=== PATIENT | female | born 1955 | race Caucasian/White ===

== ENCOUNTER → 2017-03-12 | Day surgery (SDC) | payer OTHER ==
[~2017-03-12] MED LIST: Lactated Ringers 1,000 ML IV SCH; Propofol 200 MG/20 ML SDV IV ONE
[2017-03-12 10:49] VITALS: BP 132/77
--- NOTE | 2017-03-12 15:10 | OR ---
DATE OF OPERATION: 03/12/2017 PREOPERATIVE DIAGNOSIS: FAMILY HISTORY OF COLON CANCER. POSTOPERATIVE DIAGNOSIS: FAMILY HISTORY OF COLON CANCER. SURGEON: Scot Perea MD PROCEDURE: FULL-LENGTH COLONOSCOPY. 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 COMPLICATIONS: None. SPECIMEN: None. FINDINGS: Normal full-length colonoscopy. RECOMMENDATIONS: Followup colonoscopy every 5 years. INDICATIONS: The patient has a family history of colon cancer in her mother. She overdue for a routine colonoscopy. DESCRIPTION OF PROCEDURE: The patient was prepped and draped, placed in a left lateral decubitus position. A lubricated Olympus colonoscope was inserted and easily advanced to the cecum. Direct visualization of the ileocecal valve and appendiceal orifice was accomplished. The bowel prep was adequate. Upon withdrawal of the scope, throughout the entire length of the colon, I found no signs of any polyps, masses, ulcerations, or bleeding sites. No vascular abnormalities or signs of colitis. There were no diverticula. No worrisome lesions found throughout. The rectal vault was unremarkable. Retroflexion of scope in the rectum showed no anal lesions. Air was suctioned. Scope was removed without complication. KAYLIE/JULIANNA /[id number]
== END ==
LOC: CC.SDS 08:26
PROVIDERS: ATTEND Family Medicine
DX: Z12.11 Encounter for screening for malignant neoplasm of colon (principal); F41.9 Anxiety disorder, unspecified; F32.9 Major depressive disorder, single episode, unspecified; I10 Essential (primary) hypertension; Z80.0 Family history of malignant neoplasm of digestive organs; Z91.09 Other allergy status, other than to drugs and biological substances; K21.9 Gastro-esophageal reflux disease without esophagitis; E03.9 Hypothyroidism, unspecified; Z88.1 Allergy status to other antibiotic agents; Z88.2 Allergy status to sulfonamides; Z88.8 Allergy status to other drugs, medicaments and biological substances; Z79.899 Other long term (current) drug therapy; Z90.710 Acquired absence of both cervix and uterus; Z98.890 Other specified postprocedural states; Z98.51 Tubal ligation status; Z72.0 Tobacco use
CPT/HCPCS: 45378; J2704; J7120

== ENCOUNTER 2018-06-05 07:50 | Emergency (ER) | payer BC ==
[2018-06-05] MEDS ORDERED: Nitrofurantoin Monohydrate/Macrocrystalline 100 MG Cap PO ONE ×2 (07:51→08:33)
[2018-06-05] MEDS ORDERED: Phenazopyridine 95 MG Tab PO ONE ×2 (07:51→08:30)
[2018-06-05 08:03] VITALS: BP 144/78
[2018-06-05] MEDS ORDERED: Take Home: Phenazopyridine 95 MG Tab, 4 Tab Pack ONE (08:20)
[2018-06-05] MEDS ORDERED: Take Home: Nitrofurantoin Monohydrate/Macrocrystalline 100 MG, 2 Cap Pack PO ONE (08:20)
[2018-06-05] MEDS ORDERED: Nitrofurantoin Monohydrate/Macrocrystalline 100 MG Cap ONE (08:22)
--- NOTE | 2018-06-05 08:22 | EDM.PDOC ---
ED HPI GENERAL MEDICAL PROBLEM - General Chief Complaint: Genitourinary Problem Stated Complaint: UTI? 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) (cranberry juice) Bladder Pain Score (Numeric/FACES): 5 - Related Data Allergies Allergy/AdvReac Type Severity Reaction Status Date / Time cefaclor [From Ceclor] Allergy Hives Verified 06/05/18 07:53 cefuroxime [From Ceftin] Allergy Diarrhea Verified 06/05/18 07:53 cephalexin monohydrate Allergy Chest Pain Verified 06/05/18 07:53 [From Keflex] doxycycline Allergy Nausea Verified 06/05/18 07:53 hydrocodone Allergy Nausea and Verified 06/05/18 07:53 Vomiting levofloxacin [From Levaquin] Allergy Leg Cramps Verified 06/05/18 07:53 moxifloxacin HCl Allergy Vomiting Verified 06/05/18 07:53 [From Avelox] oxycodone HCl Allergy Nausea and Verified 06/05/18 07:53 [From OxyContin] Vomiting Penicillins Allergy Hives Verified 06/05/18 07:53 Sulfa (Sulfonamide Allergy Fluid Verified 06/05/18 07:53 Antibiotics) Retention Home Meds: Home Meds Bumetanide [Bumex] 1 mg PO DAILY 09/10/13 [History] Calcium Carbonate/Vitamin D3 [Calcium 500 + Vit D Caplet] 1 each PO DAILY [History] Levothyroxine Sodium 25 mcg PO DAILY 09/10/13 [History] Pantoprazole Sodium 40 mg PO DAILY 09/10/13 [History] Potassium Chloride 10 meq PO DAILY 09/10/13 [History] Venlafaxine HCl [Venlafaxine ER] 75 mg PO DAILY 09/10/13 [History] Cetirizine HCl/Pseudoephedrine [ZyrTEC-D] 5 mg PO DAILY 02/14/15 [History] Ibuprofen 3 tab PO Q4H PRN 03/11/17 [History] traMADol HCl [Tramadol HCl] 50 mg PO BID PRN 03/11/17 [History] Past Medical History Musculoskeletal History: Reports: Arthritis Endocrine/Metabolic History: Reports: Hypoparathyroidism Social & Family History - Family History Cardiac: Reports: Hypertension - Tobacco Use Smoking Status *Q: Never Smoker - Alcohol Use Alcohol Use History: Yes Alcohol Use Frequency: Rarely - Recreational Drug Use Recreational Drug Use: No - Living Situation & Occupation Living situation: Reports: , with Family ED ROS GENERAL - Review of Systems Review Of Systems: See Below Constitutional: Reports: Chills. Denies: Fever HEENT: Reports: No Symptoms Respiratory: Reports: No Symptoms. Denies: Shortness of Breath, Cough Cardiovascular: Reports: No Symptoms. Denies: Chest Pain Endocrine: Reports: No Symptoms GI/Abdominal: Reports: Abdominal Pain (suprapubic pain) : Reports: Frequency, Pain Musculoskeletal: Reports: No Symptoms Skin: Reports: No Symptoms Neurological: Reports: No Symptoms Psychiatric: Reports: No Symptoms ED EXAM, GENERAL - Physical Exam Exam: See Below Exam Limited By: No Limitations General Appearance: Alert, WD/WN, No Apparent Distress Head: Atraumatic, Normocephalic Neck: Normal Inspection, Supple, Non-Tender, Full Range of Motion Respiratory/Chest: No Respiratory Distress, Lungs Clear, Normal Breath Sounds Cardiovascular: Normal Peripheral Pulses, Regular Rate, Rhythm, No Edema, No Murmur GI/Abdominal: Normal Bowel Sounds, Soft, No Distention, Tender (suprapubic tenderness with palpation ) Back Exam: Normal Inspection, Full Range of Motion. No: CVA Tenderness (L), CVA Tenderness (R) Extremities: Normal Inspection, Normal Range of Motion, Non-Tender, No Pedal Edema, Normal Capillary Refill Neurological: Alert, Oriented, Normal Cognition, Normal Gait, No Motor/Sensory Deficits Psychiatric: Normal Affect, Normal Mood Skin Exam: Warm, Dry, Intact, Normal Color, No Rash Course - Vital Signs Last Recorded V/S: Last Vital Signs Temp 36.7 C 06/05/18 08:00 Pulse 91 06/05/18 08:00 Resp 14 06/05/18 08:00 BP 144/78 H 06/05/18 08:00 Pulse Ox 97 06/05/18 08:00 - Orders/Labs/Meds Orders: Active Orders 24 hr Category Date Time Status CULTURE URINE [RM] Stat Lab 06/05/18 08:04 Received Nitrofurantoin Potter/Macrocryst [Macrobid] Med 06/05/18 17:30 Ordered 100 mg PO BIDMEALS Medication Orders Nitrofurantoin Macrocrystals (Macrobid) 100 mg PO BIDMEALS [facility] Labs: Laboratory Tests 06/05/18 Range/Units 08:04 Urine Color Yellow (YELLOW) Urine Appearance Cloudy (CLEAR) Urine pH 5.5 (4.5-8.0) Ur Specific [place] <= 1.005 (1.003-1.020) Urine Protein 30 H (NEGATIVE) mg/dL Urine Glucose (UA) Negative (NEGATIVE) mg/dL Urine Ketones Negative (NEGATIVE) mg/dL Urine Occult Blood Large H (NEGATIVE) Urine Nitrite Negative (NEGATIVE) Urine Bilirubin Negative (NEGATIVE) Urine Urobilinogen 0.2 (0.2-1.0) EU/dL Ur Leukocyte Esterase Moderate H (NEGATIVE) Urine RBC 20-30 H (0-5) /HPF Urine WBC 50-75 H (0-5) /HPF Ur Squamous Epith Cells Few H (NOT SEEN) /HPF Urine Bacteria Many H (NOT SEEN) /HPF Urinalysis Comment Meds: Medications Generic Name Dose Route Start Last Admin Trade Name Freq PRN Reason Stop Dose Admin Nitrofurantoin Macrocrystals 100 mg 06/05/18 17:30 Macrobid PO BIDMEALS [facility] Discontinued Medications Generic Name Dose Route Start Last Admin Trade Name Freq PRN Reason Stop Dose Admin Nitrofurantoin Macrocrystals 2 packet 06/05/18 08:20 Take Home: Nitrofur Potter/Ma 100 Mg, 2 Pack PO 06/05/18 08:21 ONETIME ONE Phenazopyridine HCl 95 mg 06/05/18 08:30 06/05/18 08:30 Urinary Pain Relief PO 06/05/18 08:31 95 mg ONETIME ONE Administration Phenazopyridine HCl 1 packet 06/05/18 08:20 Take Home: Phenazopyridine, 4 Tab Pack .XX 06/05/18 08:21 ONETIME ONE Departure - Departure Time of Disposition: 08:33 Disposition: Home, Self-Care 01 Condition: Good Clinical Impression: UTI, Urinary tract infectious disease, Hemorrhagic cystitis - Discharge Information *PRESCRIPTION DRUG MONITORING PROGRAM REVIEWED*: Not Applicable *COPY OF PRESCRIPTION DRUG MONITORING REPORT IN PATIENT ANTONIA: Not Applicable Instructions: Urinary Tract Infection, Adult, [id number] Forms: ED Department Discharge Additional Instructions: increase fluids pyridium 100mg take 1 tablet 3 x a day for 2 days nitrofurantoin 100mg 2 x a day for 10 days follow up with Rena Thompson in 7-10 days to recheck your urine return to te ED as needed - Problem List & Annotations (1) Hemorrhagic cystitis SNOMED Code(s): 73749557 Code(s): N30.91 - CYSTITIS, UNSPECIFIED WITH HEMATURIA Status: Acute Priority: Medium Current Visit: No Onset Date: ~06/02/18 - My Orders Last 24 Hours: My Active Orders 06/05/18 08:04 CULTURE URINE [RM] Stat 06/05/18 17:30 Nitrofurantoin Potter/Macrocryst [Macrobid] 100 mg PO BIDMEALS - Assessment/Plan Last 24 Hours: My Active Orders 06/05/18 08:04 CULTURE URINE [RM] Stat 06/05/18 17:30 Nitrofurantoin Potter/Macrocryst [Macrobid] 100 mg PO BIDMEALS Plan: will dc with pyridium and nitrofurantoin and will have the pt f/u with Rena Thompson in 7-10 days
[2018-06-05] MEDS ORDERED: Nitrofurantoin Monohydrate/Macrocrystalline 100 MG Cap PO SCH (17:30)
== END 2018-06-05 08:45 | disposition home or self-care (01) ==
LOC: CC.ED 07:50
DX: N30.91 Cystitis, unspecified with hematuria (principal); E20.9 Hypoparathyroidism, unspecified; Z79.899 Other long term (current) drug therapy; Z88.0 Allergy status to penicillin; Z88.2 Allergy status to sulfonamides; Z88.8 Allergy status to other drugs, medicaments and biological substances; Z88.5 Allergy status to narcotic agent
CPT/HCPCS: 81001; 87086; 87088; 99283; A9270; 87186

== ENCOUNTER 2018-12-12 13:18 | Observation (INO) | payer BC ==
[2018-12-12] MEDS ORDERED: Sodium Chloride 0.9% 10 ML Syringe FLUSH PRN (14:50)
[2018-12-12] MEDS ORDERED: Metoprolol Tartrate 25 MG Tab PO SCH (15:00)
[2018-12-12] MEDS: Enoxaparin 30 MG/0.3 ML Syringe SUBCUT SCH (16:26)
[2018-12-12] MEDS: Aspirin 325 MG Tab.EC PO SCH (16:27)
[2018-12-12] MEDS: Nitrofurantoin Monohydrate/Macrocrystalline 100 MG Cap PO SCH (16:29)
[2018-12-12] MEDS: PANTOPRAZOLE 40 MG IVPUSH SCH (16:30)
[2018-12-12] MEDS: Acetaminophen 325 MG Tab PO PRN (17:44)
[2018-12-12] MEDS ORDERED: Potassium Chloride 10 MEQ Tab.ER PO ONE (20:00)
[2018-12-12] MEDS: Metoprolol Tartrate 25 MG Tab PO SCH ×2 (20:06→22:39)
[2018-12-12] MEDS ORDERED: traMADol 50 MG Tab PO PRN (20:43)
[2018-12-13] MEDS: PANTOPRAZOLE 40 MG IVPUSH SCH (07:55)
[2018-12-13] MEDS: Aspirin 325 MG Tab.EC PO SCH (08:04)
[2018-12-13] MEDS: Acetaminophen 325 MG Tab PO PRN ×3 (08:04→19:30)
[2018-12-13] MEDS: Nitrofurantoin Monohydrate/Macrocrystalline 100 MG Cap PO SCH (08:05)
[2018-12-13] MEDS: Metoprolol Tartrate 25 MG Tab PO SCH ×2 (08:05→19:30)
[2018-12-13] MEDS: **PTOM** Potassium Chloride 10 MEQ Tab.ER PO SCH (08:39)
[2018-12-13] MEDS: VENLAFAXINE 75 MG PO SCH (08:39)
[2018-12-13] MEDS: BUMETANIDE 1 MG PO SCH (08:39)
[2018-12-13] MEDS: Levothyroxine 50 MCG Tab PO SCH ×2 (08:40→08:42)
[2018-12-13] MEDS: LEVOTHYROXINE 25 MCG PO SCH (08:41)
--- NOTE | 2018-12-13 11:32 | PCM.PN ---
- General Info Date of Service: 12/13/18 Admission Dx/Problem (Free Text): Chest Pain UTI Functional Status: Reports: Pain Controlled (states had episode last evening of increased pain but is now pain free), Tolerating Diet, Ambulating - Review of Systems General: Reports: Fever, Malaise. Denies: Weakness, Fatigue HEENT: Reports: Sinus Congestion. Denies: Sore Throat Pulmonary: Reports: Cough. Denies: Shortness of Breath, Sputum Cardiovascular: Denies: Chest Pain, Edema, Lightheadedness Gastrointestinal: Denies: Abdominal Pain, Nausea, Vomiting Genitourinary: Reports: No Symptoms Musculoskeletal: Reports: No Symptoms Skin: Reports: No Symptoms Neurological: Reports: No Symptoms Psychiatric: Reports: No Symptoms - Patient Data Vitals - Most Recent: Last Vital Signs Temp 100.1 F 12/13/18 10:30 Pulse 103 H 12/13/18 08:05 Resp 16 12/13/18 08:00 BP 148/71 H 12/13/18 08:05 Pulse Ox 97 12/13/18 08:00 Weight - Most Recent: 195 lb 12.8 oz Lab Results Last 24 Hours: Laboratory Results - last 24 hr 12/12/18 12/12/18 12/12/18 Range/Units 13:31 13:31 13:31 WBC 9.3 (5.0-10.0) 10^3/uL RBC 4.24 (4.00-5.50) 10^6/uL Hgb 12.7 (12.0-16.0) g/dL Hct 38.0 (37.0-47.0) % MCV 89.6 (82.0-94.0) fL MCH 30.0 (27.0-32.0) pg MCHC 33.4 (33.0-38.0) g/dL RDW Coeff of Ember 13.9 (11.0-15.0) % Plt Count 284 (150-400) 10^3/uL Neut % (Auto) 73.8 (35-85) % Lymph % (Auto) 15.4 (10-55) % [place] % (Auto) 8.0 (0-16) % Eos % (Auto) 2.5 (0-5) % Baso % (Auto) 0.3 (0-3) % Neut # (Auto) 6.88 (1.80-7.00) 10^3/uL Lymph # (Auto) 1.44 (1.00-4.80) 10^3/uL [place] # (Auto) 0.75 (0.00-0.80) 10^3/uL Eos # (Auto) 0.23 (0.00-0.45) 10^3/uL Baso # (Auto) 0.03 10^3/uL Add Manual Diff Neutrophils % (Manual) (35-85) % Band Neutrophils % (0-5) % Lymphocytes % (Manual) (21-55) % Monocytes % (Manual) (2-12) % Eosinophils % (Manual) (0-5) % D-Dimer, Quantitative 0.58 H (0.00-0.50) POC Sodium (138-146) mmol/L Sodium 138 POC Potassium (3.5-4.9) mmol/L Potassium 3.9 POC Chloride (98-109) mmol/L Chloride 100 Carbon Dioxide 26 POC Total CO2 (21-32) mmol/L POC BUN (8-26) mg/dL BUN 8 Creatinine 1.02 POC Creatinine (0.6-1.3) mg/dL Glucose 146 POC Glucose (70-99) mg/dL Calcium 9.1 POC WB Ioniz Calcium (1.12-1.32) Total Bilirubin 0.9 AST 12 ALT 12 Alkaline Phosphatase 97 Total Protein 7.1 Albumin 4.1 Amylase (29-103) U/L Urine Color (YELLOW) Urine Appearance (CLEAR) Urine pH (4.5-8.0) Ur Specific [place] (1.003-1.020) Urine Protein (NEGATIVE) mg/dL Urine Glucose (UA) (NEGATIVE) mg/dL Urine Ketones (NEGATIVE) mg/dL Urine Occult Blood (NEGATIVE) Urine Nitrite (NEGATIVE) Urine Bilirubin (NEGATIVE) Urine Urobilinogen (0.2-1.0) EU/dL Ur Leukocyte Esterase (NEGATIVE) Miscellaneous Test 12/12/18 12/12/18 12/12/18 Range/Units 13:31 13:31 14:08 WBC (5.0-10.0) 10^3/uL RBC (4.00-5.50) 10^6/uL Hgb (12.0-16.0) g/dL Hct (37.0-47.0) % MCV (82.0-94.0) fL MCH (27.0-32.0) pg MCHC (33.0-38.0) g/dL RDW Coeff of Ember (11.0-15.0) % Plt Count (150-400) 10^3/uL Neut % (Auto) (35-85) % Lymph % (Auto) (10-55) % [place] % (Auto) (0-16) % Eos % (Auto) (0-5) % Baso % (Auto) (0-3) % Neut # (Auto) (1.80-7.00) 10^3/uL Lymph # (Auto) (1.00-4.80) 10^3/uL [place] # (Auto) (0.00-0.80) 10^3/uL Eos # (Auto) (0.00-0.45) 10^3/uL Baso # (Auto) 10^3/uL Add Manual Diff Neutrophils % (Manual) (35-85) % Band Neutrophils % (0-5) % Lymphocytes % (Manual) (21-55) % Monocytes % (Manual) (2-12) % Eosinophils % (Manual) (0-5) % D-Dimer, Quantitative (0.00-0.50) POC Sodium (138-146) mmol/L Sodium POC Potassium (3.5-4.9) mmol/L Potassium POC Chloride (98-109) mmol/L Chloride Carbon Dioxide POC Total CO2 (21-32) mmol/L POC BUN (8-26) mg/dL BUN Creatinine POC Creatinine (0.6-1.3) mg/dL Glucose POC Glucose (70-99) mg/dL Calcium POC WB Ioniz Calcium (1.12-1.32) Total Bilirubin AST ALT Alkaline Phosphatase Total Protein Albumin Amylase 43 (29-103) U/L Urine Color Yellow (YELLOW) Urine Appearance Clear (CLEAR) Urine pH 7.0 (4.5-8.0) Ur Specific [place] 1.010 (1.003-1.020) Urine Protein Negative (NEGATIVE) mg/dL Urine Glucose (UA) Negative (NEGATIVE) mg/dL Urine Ketones Negative (NEGATIVE) mg/dL Urine Occult Blood Small H (NEGATIVE) Urine Nitrite Negative (NEGATIVE) Urine Bilirubin Negative (NEGATIVE) Urine Urobilinogen 0.2 (0.2-1.0) EU/dL Ur Leukocyte Esterase Large H (NEGATIVE) Miscellaneous Test <0.03 12/12/18 12/13/18 Range/Units 15:55 07:00 WBC 11.7 H (5.0-10.0) 10^3/uL RBC 4.23 (4.00-5.50) 10^6/uL Hgb 12.7 (12.0-16.0) g/dL Hct 38.3 (37.0-47.0) % MCV 90.5 (82.0-94.0) fL MCH 30.0 (27.0-32.0) pg MCHC 33.2 (33.0-38.0) g/dL RDW Coeff of Ember 13.8 (11.0-15.0) % Plt Count 275 (150-400) 10^3/uL Neut % (Auto) [employer] (35-85) % Lymph % (Auto) [employer] (10-55) % [place] % (Auto) [employer] (0-16) % Eos % (Auto) [employer] (0-5) % Baso % (Auto) [employer] (0-3) % Neut # (Auto) [employer] (1.80-7.00) 10^3/uL Lymph # (Auto) [employer] (1.00-4.80) 10^3/uL [place] # (Auto) [employer] (0.00-0.80) 10^3/uL Eos # (Auto) [employer]or (0.00-0.45) 10^3/uL Baso # (Auto) Meat [employer]or 10^3/uL Add Manual Diff Yes Neutrophils % (Manual) 86 H (35-85) % Band Neutrophils % 6 H (0-5) % Lymphocytes % (Manual) 3 L (21-55) % Monocytes % (Manual) 1 L (2-12) % Eosinophils % (Manual) 4 (0-5) % D-Dimer, Quantitative (0.00-0.50) POC Sodium 138 (138-146) mmol/L Sodium POC Potassium 3.6 (3.5-4.9) mmol/L Potassium POC Chloride 97 L (98-109) mmol/L Chloride Carbon Dioxide POC Total CO2 27 (21-32) mmol/L POC BUN 7 L (8-26) mg/dL BUN Creatinine POC Creatinine 1.0 (0.6-1.3) mg/dL Glucose POC Glucose 115 H (70-99) mg/dL Calcium POC WB Ioniz Calcium 1.1 L (1.12-1.32) Total Bilirubin AST ALT Alkaline Phosphatase Total Protein Albumin Amylase (29-103) U/L Urine Color (YELLOW) Urine Appearance (CLEAR) Urine pH (4.5-8.0) Ur Specific [place] (1.003-1.020) Urine Protein (NEGATIVE) mg/dL Urine Glucose (UA) (NEGATIVE) mg/dL Urine Ketones (NEGATIVE) mg/dL Urine Occult Blood (NEGATIVE) Urine Nitrite (NEGATIVE) Urine Bilirubin (NEGATIVE) Urine Urobilinogen (0.2-1.0) EU/dL Ur Leukocyte Esterase (NEGATIVE) Miscellaneous Test Zak Results Last 24 Hours: Microbiology 12/12/18 14:08 Urine Culture - Final Urine, Voided Beta Hemolytic Strepto Grp B Med Orders - Current: Current Medications Acetaminophen (Tylenol) 650 mg PO Q4H PRN PRN Reason: Pain (Mild 1-3)/fever Last Admin: 12/13/18 08:04 Dose: 650 mg Aspirin (Ecotrin) 325 mg PO DAILY [facility] Last Admin: 12/13/18 08:04 Dose: 325 mg Bumetanide (Bumex) 1 mg PO DAILY [facility] Last Admin: 12/13/18 08:39 Dose: 1 mg Enoxaparin Sodium (Lovenox) 30 mg SUBCUT DAILY@1200 [facility] Last Admin: 12/12/18 16:26 Dose: 30 mg Metoprolol Tartrate (Lopressor) 12.5 mg PO BID [facility] Last Admin: 12/13/18 08:05 Dose: 12.5 mg Nitrofurantoin Macrocrystals (Macrobid) 100 mg PO BIDMEALS [facility] Last Admin: 12/13/18 08:05 Dose: 100 mg Ptom Levothyroxine 25 Mcg Tab 25 mcg PO DAILY [facility] Last Admin: 12/13/18 08:41 Dose: 25 mcg Pantoprazole Sodium (Protonix Iv) 40 mg IVPUSH DAILY [facility] Last Admin: 12/13/18 07:55 Dose: 40 mg Potassium Chloride (Klor-Con 10) 10 meq PO DAILY [facility] Last Admin: 12/13/18 08:39 Dose: 10 meq Sodium Chloride (Saline Flush) 10 ml FLUSH ASDIRECTED PRN PRN Reason: Keep Vein Open Tramadol HCl (Ultram) 50 mg PO BID PRN PRN Reason: Pain Venlafaxine HCl (Effexor Xr) 75 mg PO DAILY [facility] Last Admin: 12/13/18 08:39 Dose: 75 mg Discontinued Medications Levothyroxine Sodium (Synthroid) 25 mcg PO DAILY [facility] Last Admin: 12/13/18 08:42 Dose: Not Given Metoprolol Tartrate (Lopressor) 12.5 mg PO Q12H [facility] Last Admin: 12/12/18 16:27 Dose: 12.5 mg Potassium Chloride (Klor-Con 10) 10 meq PO ONETIME ONE Stop: 12/12/18 20:01 Last Admin: 12/12/18 20:05 Dose: 10 meq - Exam General: Alert, Oriented HEENT: Mucous Membr. Moist/[place] Neck: Supple Lungs: Clear to Auscultation, Normal Respiratory Effort Cardiovascular: Regular Rate, Regular Rhythm GI/Abdominal Exam: Normal Bowel Sounds, Soft, Non-Tender Extremities: Normal Inspection, No Pedal Edema Skin: Warm, Dry Neurological: No New Focal Deficit - Problem List & Annotations (1) Chest pain SNOMED Code(s): 57372485 Code(s): R07.9 - CHEST PAIN, UNSPECIFIED Status: Acute Priority: High Current Visit: Yes Qualifiers: Chest pain type: other chest pain Qualified Code(s): R07.89 - Other chest pain; R07.8 - Other chest pain (2) UTI, Urinary tract infectious disease SNOMED Code(s): 84612002 Code(s): N39.0 - URINARY TRACT INFECTION, SITE NOT SPECIFIED Status: Acute Priority: High Current Visit: Yes - Problem List Review Problem List Initiated/Reviewed/Updated: Yes - My Orders Last 24 Hours: My Active Orders 12/12/18 14:50 Patient Status [ADT] Routine Oxygen Therapy [RC] .PRN Up With Assistance [RC] .PRN Vital Signs [RC] 0000,0400,0800,1200,1600,1999 Acetaminophen [Tylenol] 650 mg PO Q4H PRN Sodium Chloride 0.9% [Saline Flush] 10 ml FLUSH ASDIRECTED PRN Saline Lock Insert [OM.PC] Routine Resuscitation Status Routine 12/12/18 14:53 Cardiac Monitoring [RC] 0800,199912/12/18 15:00 Aspirin [Ecotrin] 325 mg PO DAILY Pantoprazole [ProTONIX IV] 40 mg IVPUSH DAILY 12/12/18 15:30 Enoxaparin [Lovenox] 30 mg SUBCUT DAILY@1200 12/12/18 17:30 Nitrofurantoin [place]/Macrocryst [Macrobid] 100 mg PO BIDMEALS 12/12/18 20:00 Metoprolol Tartrate [Lopressor] 12.5 mg PO BID 12/12/18 20:43 traMADol [Ultram] 50 mg PO BID PRN 12/12/18 Dinner 2 Gram Sodium Diet [DIET] 12/13/18 05:11 BASIC METABOLIC PANEL,BMP [CHEM] AM TROPONIN I [CHEM] AM 12/13/18 08:00 Bumetanide [Bumex] 1 mg PO DAILY Levothyroxine 25 mcg PO DAILY Potassium Chloride [Klor-Con 10] 10 meq PO DAILY Venlafaxine [Effexor XR] 75 mg PO DAILY 12/13/18 08:34 Chest 2V [CR] Routine - Assessment Assessment:: Chest Pain UTI - Plan Plan:: Patient relates had episode of increased discomfort last night, no cardiac changes noted on telemetry. EKG actually improved this am. Is receiving IV Protonix as well. No abdominal pain at all this am. UA was positive, today shows beta hemolytic strep. Is febrile this am, 102. Did develop a cough as well. WBC increased this am at 11.7 with left shift. Troponin received last night was negative. Awaiting repeat troponin from this am due to chemistry analyzer still down. Will await full sensitivities on urine tomorrow due to multiple allergies. Await troponin this evening. Will set up Kelly scan on discharge. Probable discharge home tomorrow.
[2018-12-13] MEDS: Enoxaparin 30 MG/0.3 ML Syringe SUBCUT SCH (11:51)
[2018-12-13] MEDS ORDERED: Levofloxacin/Dextrose 5%-Water 500 MG in Premix Bag 1 BAG IV ONE (15:30)
[2018-12-13] MEDS ORDERED: Ibuprofen 200 MG Tab PO PRN (16:59)
[2018-12-14] MEDS: Metoprolol Tartrate 25 MG Tab PO SCH (07:27)
[2018-12-14] MEDS: PANTOPRAZOLE 40 MG IVPUSH SCH (07:27)
[2018-12-14] MEDS: Aspirin 325 MG Tab.EC PO SCH (07:27)
[2018-12-14 07:28] VITALS: BP 122/45
[2018-12-14] MEDS: LEVOTHYROXINE 25 MCG PO SCH (07:30)
[2018-12-14] MEDS: BUMETANIDE 1 MG PO SCH (07:31)
[2018-12-14] MEDS: **PTOM** Potassium Chloride 10 MEQ Tab.ER PO SCH (07:31)
[2018-12-14] MEDS: VENLAFAXINE 75 MG PO SCH (07:32)
[2018-12-14] MEDS ORDERED: Levofloxacin/Dextrose 5%-Water 250 MG in Premix Bag 1 BAG IV SCH (16:00)
--- NOTE | 2018-12-17 14:27 | PCM.DCSUM1 ---
Discharge Summary - Hospital Course Free Text/Narrative:: Patient presented to clinic with episode of acute chest pain the night prior with persisting "mild discomfort in chest". Also experiencing diffuse abdominal burning and increased GERD. Low grade fever. No melena or hematochezia. States felt short of breath with acute chest pain. Relates had episode similar to this one month prior. Initial labs show normal WBC. EKG shows ST changes in inferior leads. Due to chemistry analyzer being down, unable to get troponin result. UA positive for UTI. Admitted for serial EKG, monitor telemetry. Start Macrobid for UTI due to multiple allergies listed. Diagnosis: Stroke: No Modified Theodore Scale: No Symptoms at All Modified Theodore Scale Score: 0 - Discharge Data Discharge Date: 12/14/18 Discharge Disposition: Home, Self-Care 01 Condition: Good - Discharge Diagnosis/Problem(s) (1) Chest pain SNOMED Code(s): 70195029 ICD Code: R07.9 - CHEST PAIN, UNSPECIFIED Status: Acute Priority: High Qualifiers: Chest pain type: other chest pain Qualified Code(s): R07.89 - Other chest pain; R07.8 - Other chest pain (2) UTI, Urinary tract infectious disease SNOMED Code(s): 41014586 ICD Code: N39.0 - URINARY TRACT INFECTION, SITE NOT SPECIFIED Status: Acute Priority: High - Patient Summary/Data Complications: none Hospital Course: patient improved this am. Had one episode of chest pain during stay, no telemetry changes noted. Serial EKGs improved. Initial troponin now received was negative at 0.03. WBC did increase to 11.7 yesterday. Spiked fever as high as 103. Blood cultures were obtained and have remained negative. Urine culture shows beta hemolytic strep. Patient was given a trial of IV Levaquin and did tolerate fairly well, states "got water reflux from it". Is afebrile today. Feeling "better than I have in some time". WBC down again, CRP received today 19.8, unable to follow this through stay due to equipment difficulties. Will discharge home on oral Levaquin. Proceed with Kelly scan next week with Dr. Perea. Recheck in 10 days. - Patient Instructions Diet: Usual Diet as Tolerated Activity: As Tolerated - Discharge Plan *PRESCRIPTION DRUG MONITORING PROGRAM REVIEWED*: No *COPY OF PRESCRIPTION DRUG MONITORING REPORT IN PATIENT ANTONIA: No Prescriptions/Med Rec: Aspirin [Ecotrin EC] 325 mg PO DAILY #30 tab.ec levoFLOXacin [Levaquin] 250 mg PO DAILY #10 tab Metoprolol Tartrate [Lopressor] 12.5 mg PO BID #60 tablet Home Medications: Home Meds Bumetanide [Bumex] 1 mg PO DAILY 09/10/13 [History] Calcium Carbonate/Vitamin D3 [Calcium 500 + Vit D Caplet] 1 each PO DAILY [History] Levothyroxine Sodium 25 mcg PO DAILY 09/10/13 [History] Pantoprazole Sodium 40 mg PO DAILY 09/10/13 [History] Potassium Chloride 10 meq PO DAILY 09/10/13 [History] Venlafaxine HCl [Venlafaxine ER] 75 mg PO DAILY 09/10/13 [History] Cetirizine HCl/Pseudoephedrine [ZyrTEC-D] 5 mg PO DAILY PRN 02/14/15 [History] Ibuprofen 600 mg PO Q4H PRN 03/11/17 [History] traMADol HCl [Tramadol HCl] 50 mg PO BID PRN 03/11/17 [History] Aspirin [Ecotrin EC] 325 mg PO DAILY #30 tab.ec 12/14/18 [Rx] Metoprolol Tartrate [Lopressor] 12.5 mg PO BID #60 tablet 12/14/18 [Rx] levoFLOXacin [Levaquin] 250 mg PO DAILY #10 tab 12/14/18 [Rx] Referrals: Lili Heath PA [ED Midlevel Provider] - (Follow up with Anabella Heath in 10 days ) - Discharge Summary/Plan Comment DC Time >30 min.: No - General Info Date of Service: 12/14/18 Admission Dx/Problem (Free Text: Chest Pain UTI Functional Status: Reports: Pain Controlled, Tolerating Diet, Ambulating, Urinating - Review of Systems General: Reports: Weakness. Denies: Fever HEENT: Reports: No Symptoms Pulmonary: Reports: Cough. Denies: Shortness of Breath Cardiovascular: Denies: Chest Pain, Edema, Lightheadedness Gastrointestinal: Denies: Abdominal Pain, Nausea, Vomiting Genitourinary: Reports: Frequency Musculoskeletal: Reports: No Symptoms Skin: Reports: No Symptoms Neurological: Reports: No Symptoms - Patient Data Vitals - Most Recent: Last Vital Signs Temp 98.4 F 12/14/18 07:28 Pulse 85 12/14/18 07:28 Resp 20 12/14/18 07:28 BP 122/45 L 12/14/18 07:28 Pulse Ox 99 12/14/18 07:28 Weight - Most Recent: 195 lb 12.8 oz MARIO Results - Last 24 hrs: Microbiology 12/13/18 15:38 Aerobic Blood Culture - Preliminary Blood - Venous - Lab Draw NO GROWTH AFTER 3 DAYS Anaerobic Blood Culture - Preliminary NO GROWTH AFTER 3 DAYS 12/13/18 15:32 Aerobic Blood Culture - Preliminary Blood - Venous NO GROWTH AFTER 3 DAYS Anaerobic Blood Culture - Preliminary NO GROWTH AFTER 3 DAYS Med Orders - Current: Current Medications Discontinued Medications Acetaminophen (Tylenol) 650 mg PO Q4H PRN PRN Reason: Pain (Mild 1-3)/fever Last Admin: 12/13/18 19:30 Dose: 650 mg Aspirin (Ecotrin) 325 mg PO DAILY [facility] Last Admin: 12/14/18 07:27 Dose: 325 mg Bumetanide (Bumex) 1 mg PO DAILY [facility] Last Admin: 12/14/18 07:31 Dose: 1 mg Enoxaparin Sodium (Lovenox) 30 mg SUBCUT DAILY@1200 [facility] Last Admin: 12/13/18 11:51 Dose: 30 mg Levofloxacin/Dextrose 500 mg/ (Premix) 100 mls @ 100 mls/hr IV ONETIME ONE Stop: 12/13/18 16:29 Last Admin: 12/13/18 16:00 Dose: 100 mls/hr Levofloxacin/Dextrose 250 mg/ (Premix) 50 mls @ 50 mls/hr IV DAILY@1600 [facility] Ibuprofen (Motrin) 600 mg PO Q6H PRN PRN Reason: Fever Last Admin: 12/13/18 17:03 Dose: 600 mg Levothyroxine Sodium (Synthroid) 25 mcg PO DAILY [facility] Last Admin: 12/13/18 08:42 Dose: Not Given Metoprolol Tartrate (Lopressor) 12.5 mg PO Q12H [facility] Last Admin: 12/12/18 16:27 Dose: 12.5 mg Metoprolol Tartrate (Lopressor) 12.5 mg PO BID [facility] Last Admin: 12/14/18 07:27 Dose: 12.5 mg Nitrofurantoin Macrocrystals (Macrobid) 100 mg PO BIDMEALS [facility] Last Admin: 12/13/18 08:05 Dose: 100 mg Ptom Levothyroxine 25 Mcg Tab 25 mcg PO DAILY [facility] Last Admin: 12/14/18 07:30 Dose: 25 mcg Pantoprazole Sodium (Protonix Iv) 40 mg IVPUSH DAILY [facility] Last Admin: 12/14/18 07:27 Dose: 40 mg Potassium Chloride (Klor-Con 10) 10 meq PO ONETIME ONE Stop: 12/12/18 20:01 Last Admin: 12/12/18 20:05 Dose: 10 meq Potassium Chloride (Klor-Con 10) 10 meq PO DAILY [facility] Last Admin: 12/14/18 07:31 Dose: 10 meq Sodium Chloride (Saline Flush) 10 ml FLUSH ASDIRECTED PRN PRN Reason: Keep Vein Open Tramadol HCl (Ultram) 50 mg PO BID PRN PRN Reason: Pain Venlafaxine HCl (Effexor Xr) 75 mg PO DAILY [facility] Last Admin: 12/14/18 07:32 Dose: 75 mg - Exam General: Reports: Alert, Oriented HEENT: Reports: Mucous Membr. Moist/Cyrus Neck: Reports: Supple Lungs: Reports: Clear to Auscultation, Normal Respiratory Effort Cardiovascular: Reports: Regular Rate, Regular Rhythm GI/Abdominal Exam: Normal Bowel Sounds, Soft, Non-Tender Extremities: Normal Inspection, No Pedal Edema Skin: Reports: Warm, Dry Neurological: Reports: No New Focal Deficit
== END 2018-12-14 10:20 | disposition home or self-care (01) ==
LOC: CC.MS 13:18 → CC.FCMC 13:18 → UNDOADMOB 14:34 → CC.MS 14:34
PROVIDERS: ADMIT Physician Assistant Medical; ATTEND Family Medicine
DX: R07.89 Other chest pain (principal); N39.0 Urinary tract infection, site not specified; K21.9 Gastro-esophageal reflux disease without esophagitis; Z88.1 Allergy status to other antibiotic agents; Z88.5 Allergy status to narcotic agent; Z88.0 Allergy status to penicillin; Z88.2 Allergy status to sulfonamides; Z88.8 Allergy status to other drugs, medicaments and biological substances; Z79.899 Other long term (current) drug therapy
CPT/HCPCS: 36415; 71046; 74019; 80047; 80048; 80053; 81003; 82150; 85025; 85379; 86140; 87040; 87086; 93005; 96365; 96372; 96375; 96376; A4217; A9270-GY; C9113; G0378; J1650; J1956

== ENCOUNTER 2020-04-23 06:54 | Emergency (ER) | payer MEDICARE, OTHER ==
[2020-04-23 07:10] VITALS: BP 125/67; PULSE 88
--- NOTE | 2020-04-23 07:38 | EDM.PDOC ---
ED HPI GENERAL MEDICAL PROBLEM - General Chief Complaint: General Stated Complaint: cough, fever, body aches Time Seen by Provider: 04/23/20 07:30 Source of Information: Reports: Patient History Limitations: Reports: No Limitations - History of Present Illness INITIAL COMMENTS - FREE TEXT/NARRATIVE: Diana is a 64 yo male who presents to the ED with c/o cough, body aches, heada roge and fever. She reports symptoms started Wednesday. Did have a few loose stools as well. She reports she attempted to get tested yesterday but was told she couldn't. She wishes to be tested as her has Covid. She did take ibuprofen just prior to presenting to the ED and reports she is already feeling better. SHe does not feel short of breath. Is concerned as her cough was loose and then it turned more tight. VSS on RA. Onset Date: 04/21/20 Location: Reports: Generalized Associated Symptoms: Reports: Cough, Fever/Chills, Headaches, Loss of Appetite, Malaise. 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: Reports: NSAIDS rib pain and headache Pain Score (Numeric/FACES): 5 - Related Data Allergies Allergy/AdvReac Type Severity Reaction Status Date / Time cefaclor [From Ceclor] Allergy Hives Verified 04/23/20 07:24 cefuroxime [From Ceftin] Allergy Diarrhea Verified 04/23/20 07:24 cephalexin monohydrate Allergy Chest Pain Verified 04/23/20 07:24 [From Keflex] doxycycline Allergy Nausea Verified 04/23/20 07:24 hydrocodone Allergy Nausea and Verified 04/23/20 07:24 Vomiting levofloxacin [From Levaquin] Allergy Leg Cramps Verified 04/23/20 07:24 moxifloxacin HCl Allergy Vomiting Verified 04/23/20 07:24 [From Avelox] oxycodone HCl Allergy Nausea and Verified 04/23/20 07:24 [From OxyContin] Vomiting Penicillins Allergy Hives Verified 04/23/20 07:24 Sulfa (Sulfonamide Allergy Fluid Verified 04/23/20 07:24 Antibiotics) Retention Home Meds: Home Meds Bumetanide [Bumex] 1 mg PO DAILY 09/10/13 [History] Calcium Carbonate/Vitamin D3 [Calcium 500-Vit D3 125 Caplet] 1 each PO DAILY 09/10/13 [History] Levothyroxine Sodium 25 mcg PO DAILY 09/10/13 [History] Pantoprazole Sodium 40 mg PO DAILY 09/10/13 [History] Potassium Chloride 10 meq PO DAILY 09/10/13 [History] Venlafaxine HCl [Venlafaxine ER] 75 mg PO DAILY 09/10/13 [History] Cetirizine HCl/Pseudoephedrine [ZyrTEC-D] 5 mg PO DAILY PRN 02/14/15 [History] Ibuprofen 600 mg PO Q4H PRN 03/11/17 [History] traMADol HCl [Tramadol HCl] 50 mg PO BID PRN 03/11/17 [History] Losartan Potassium 25 mg PO DAILY 04/23/20 [History] Multivitamin 1 tab PO DAILY 04/23/20 [History] carvediloL [Carvedilol] 6.25 mg PO BID 04/23/20 [History] carvediloL [Carvedilol] 12.5 mg PO BID 04/23/20 [History] Past Medical History HEENT History: Reports: None Cardiovascular History: Reports: Cardiomyopathy Respiratory History: Reports: Bronchitis, Recurrent Gastrointestinal History: Reports: GERD Genitourinary History: Reports: Pyelonephritis, Renal 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: 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, Musculoskeletal History: Reports: Arthritis Neurological History: Reports: Migraines, Vertigo Endocrine/Metabolic History: Reports: Hypoparathyroidism - Past Surgical History HEENT Surgical History: Reports: Oral Surgery GI Surgical History: Reports: Colonoscopy Female Surgical History: Reports: Hysterectomy, Tubal Ligation Neurological Surgical History: Reports: Discectomy Social & Family History - Family History Family Medical History: No Pertinent Family History Cardiac: Reports: Hypertension - Tobacco Use Tobacco Use Status *Q: Never Tobacco User - Caffeine Use Caffeine Use: Reports: Coffee, Soda - Living Situation & Occupation Living situation: Reports: , with Family ED ROS GENERAL - Review of Systems Review Of Systems: Comprehensive ROS is negative, except as noted in HPI. ED EXAM, GENERAL - Physical Exam Exam: See Below Exam Limited By: No Limitations General Appearance: Alert, WD/WN, No Apparent Distress Eye Exam: Bilateral Eye: EOMI, Normal Fundi, Normal Inspection, PERRL Ears: Normal External Exam, Normal Canal, Hearing Grossly Normal, Normal TMs Nose: Normal Inspection, Normal Mucosa, No Blood Throat/Mouth: Normal Inspection, Normal Lips, Normal Teeth, Normal Gums, Normal Oropharynx, Normal Voice, No Airway Compromise Head: Atraumatic, Normocephalic Neck: Normal Inspection, Supple, Non-Tender, Full Range of Motion Respiratory/Chest: No Respiratory Distress, Lungs Clear, Normal Breath Sounds, No Accessory Muscle Use, Chest Non-Tender Cardiovascular: Normal Peripheral Pulses, Regular Rate, Rhythm, No Edema, No Gallop, No JVD, No Murmur, No Rub GI/Abdominal: Normal Bowel Sounds, Soft, Non-Tender, No Organomegaly, No Distention, No Abnormal Bruit, No Mass Extremities: Normal Inspection, Normal Range of Motion, Non-Tender, Normal Capillary Refill, No Pedal Edema Neurological: Alert, Oriented, CN II-XII Intact, Normal Cognition, Normal Gait, Normal Reflexes, No Motor/Sensory Deficits Psychiatric: Normal Affect, Normal Mood Course - Vital Signs Last Recorded V/S: Last Vital Signs Temp 99.1 F 04/23/20 07:01 Pulse 88 04/23/20 07:01 Resp 18 04/23/20 07:01 BP 125/67 04/23/20 07:01 Pulse Ox 95 04/23/20 07:01 - Orders/Labs/Meds Orders: Active Orders 24 hr Category Date Time Status Isolation [COMM] Stat Ot 04/23/20 07:40 Active Labs: Laboratory Tests 04/23/20 04/23/20 04/23/20 Range/Units 07:00 07:30 07:30 WBC 3.5 L (5.0-10.0) 10^3/uL RBC 3.88 L (4.00-5.50) 10^6/uL Hgb 11.7 L (12.0-16.0) g/dL Hct 36.5 L (37.0-47.0) % MCV 94.1 H (82.0-94.0) fL MCH 30.2 (27.0-32.0) pg MCHC 32.1 L (33.0-38.0) g/dL RDW Coeff of Ember 14.1 (11.0-15.0) % Plt Count 250 (150-400) 10^3/uL Neut % (Auto) 68.3 (35-85) % Lymph % (Auto) 9.6 L (10-55) % Montague % (Auto) 19.3 H (0-16) % Eos % (Auto) 2.0 (0-5) % Baso % (Auto) 0.8 (0-3) % Neut # (Auto) 2.41 (1.80-7.00) 10^3/uL Lymph # (Auto) 0.34 L (1.00-4.80) 10^3/uL Montague # (Auto) 0.68 (0.00-0.80) 10^3/uL Eos # (Auto) 0.07 (0.00-0.45) 10^3/uL Baso # (Auto) 0.03 10^3/uL D-Dimer, Quantitative 1.01 H (0.00-0.50) Sodium (136-145) mEq/L Potassium (3.5-5.0) mEq/L Chloride (98-106) mEq/L Carbon Dioxide (21-32) mmol/L BUN (7-18) mg/dL Creatinine (0.6-1.0) mg/dL Est Cr Clr Drug Dosing mL/min Estimated GFR (MDRD) (>=60) mL/min Glucose (75-99) mg/dL Lactic Acid (0.4-2.0) mmol/L Calcium (8.4-10.1) mg/dL Total Bilirubin (0.0-1.0) mg/dL AST (15-37) U/L ALT (12-78) U/L Alkaline Phosphatase (46-116) U/L Creatine Kinase (21-215) U/L C-Reactive Protein (0.2-0.8) mg/dL Total Protein (6.4-8.2) g/dL Albumin (3.4-5.0) g/dL SARS CoV-2 RNA Rapid THANG Positive H (NEGATIVE) 04/23/20 04/23/20 Range/Units 07:30 07:30 WBC (5.0-10.0) 10^3/uL RBC (4.00-5.50) 10^6/uL Hgb (12.0-16.0) g/dL Hct (37.0-47.0) % MCV (82.0-94.0) fL MCH (27.0-32.0) pg MCHC (33.0-38.0) g/dL RDW Coeff of Ember (11.0-15.0) % Plt Count (150-400) 10^3/uL Neut % (Auto) (35-85) % Lymph % (Auto) (10-55) % Montague % (Auto) (0-16) % Eos % (Auto) (0-5) % Baso % (Auto) (0-3) % Neut # (Auto) (1.80-7.00) 10^3/uL Lymph # (Auto) (1.00-4.80) 10^3/uL Montague # (Auto) (0.00-0.80) 10^3/uL Eos # (Auto) (0.00-0.45) 10^3/uL Baso # (Auto) 10^3/uL D-Dimer, Quantitative (0.00-0.50) Sodium 136 (136-145) mEq/L Potassium 4.0 (3.5-5.0) mEq/L Chloride 101 (98-106) mEq/L Carbon Dioxide 27 (21-32) mmol/L BUN 10 (7-18) mg/dL Creatinine 1.3 H (0.6-1.0) mg/dL Est Cr Clr Drug Dosing 34.12 mL/min Estimated GFR (MDRD) 41 L (>=60) mL/min Glucose 99 (75-99) mg/dL Lactic Acid 0.8 (0.4-2.0) mmol/L Calcium 8.6 (8.4-10.1) mg/dL Total Bilirubin 0.4 (0.0-1.0) mg/dL AST 16 (15-37) U/L ALT 16 (12-78) U/L Alkaline Phosphatase 98 (46-116) U/L Creatine Kinase 50 (21-215) U/L C-Reactive Protein 2.7 H (0.2-0.8) mg/dL Total Protein 7.4 (6.4-8.2) g/dL Albumin 3.5 (3.4-5.0) g/dL SARS CoV-2 RNA Rapid THANG (NEGATIVE) - Re-Assessments/Exams Free Text/Narrative Re-Assessment/Exam: Discussed with patient that labs are all stable. Discussed that with the viral etiology and her not requiring oxygen, there is no recommended treatment other than symptomatic cares. She is already reporting improved symptoms since taking ibuprofen. Her VS are stable on RA at this time. Did discuss that with covid conditions can change rapidly. Her lung sounds are clear at this time. SHe declines chest xray, which I feel is feasible at this time. Departure - Departure Time of Disposition: 08:17 Disposition: Home, Self-Care 01 Condition: Fair Clinical Impression: COVID-19 - Discharge Information *PRESCRIPTION DRUG MONITORING PROGRAM REVIEWED*: Not Applicable *COPY OF PRESCRIPTION DRUG MONITORING REPORT IN PATIENT ANTONIA: Not Applicable Instructions: COVID-19 Frequently Asked Questions, COVID-19 Referrals: PCP,Unknown [Primary Care Provider] - Forms: ED Department Discharge Additional Instructions: - Rest and push fluids - Alternate Tylenol and ibuprofen every 3-4 hours as needed for fever/discomfort - Quarantine at home for 10 days from symptoms onset or until 24 hrs after symptoms have resolved - Recommend reevaluation if develop any difficulty breathing or shortness of breath - Follow up as needed Sepsis Event Note (ED) - Evaluation Sepsis Screening Result: No Definite Risk - Focused Exam Vital Signs: Vital Signs Temp Pulse Resp BP Pulse Ox 04/23/20 07:01 99.1 F 88 18 125/67 95 - Problem List & Annotations (1) COVID-19 SNOMED Code(s): 894484616 Code(s): U07.1 - COVID-19 Status: Acute - Problem List Review Problem List Initiated/Reviewed/Updated: Yes - My Orders Last 24 Hours: My Active Orders 04/23/20 07:40 Isolation [COMM] Stat - Assessment/Plan Last 24 Hours: My Active Orders 04/23/20 07:40 Isolation [COMM] Stat Assessment:: Covid-19 Plan: Covid positive. Patient in no acute distress. Has not been coughing since in ED. VS are stable on RA. Labs all stable. Discussed that symptoms can rapidly change with this virus. Recommend symptomatic cares at this time. Rest and push fluids. Alternate Tylenol and ibuprofen as needed for fever/discomfort. SHe is advised to return to the ED for any worsening of condition or the development of shortness of breath or difficulty breathing. SHe verbalized understanding and was agreeable to plan of care. She was discharged from facility in satisfactory condition.
== END 2020-04-23 08:33 | disposition home or self-care (01) ==
LOC: CC.ED 06:54
DX: U07.1 COVID-19 (principal); K21.9 Gastro-esophageal reflux disease without esophagitis; E20.9 Hypoparathyroidism, unspecified; Z88.1 Allergy status to other antibiotic agents; Z88.5 Allergy status to narcotic agent; Z88.0 Allergy status to penicillin; Z88.2 Allergy status to sulfonamides; Z79.899 Other long term (current) drug therapy
CPT/HCPCS: 36415; 80053; 82550; 83605; 85025; 85379; 86140; 99283; 99284; U0002

== ENCOUNTER 2020-04-30 15:50 | Emergency (ER) | payer MEDICARE, OTHER ==
[2020-04-30] MEDS ORDERED: Sodium Chloride 0.9% 1,000 ML ONE (16:08)
[2020-04-30 16:23] VITALS: BP 101/66; PULSE 78
[2020-04-30] MEDS ORDERED: Sodium Chloride 0.9% 500 ML IV SCH (16:30)
--- NOTE | 2020-04-30 16:51 | EDM.PDOC ---
ED HPI GENERAL MEDICAL PROBLEM - General Chief Complaint: General Stated Complaint: fall Time Seen by Provider: 04/30/20 16:30 Source of Information: Reports: Patient History Limitations: Reports: No Limitations - History of Present Illness INITIAL COMMENTS - FREE TEXT/NARRATIVE: Diana is a 64 yo female who presents to the ED with syncopal episode. She was diagnosed with Covid 8 days ago. Reports she has felt pretty lousy the entire time. Has laid in bed most of the day today. Reports she got up to go to the bathroom this afternoon and had dizziness and syncopal episode. She does believe she had LOC. She denies any injury with the fall. She reports her got scared and brought her to the ED. She reports she is feeling better now that she is lying down. VSS on RA. She has generalized malaise/body aches. Denies any diarrhea. Appetite has been decreased. SHe has been trying to drink fluids but reports it is not as much as normal. Onset: Today, Sudden Duration: Resolved Prior to Arrival Associated Symptoms: Reports: Cough, Loss of Appetite, Malaise, Syncope, Weakness. Denies: Confusion, Chest Pain, Diaphoresis, Fever/Chills, Headaches, Nausea/Vomiting, Rash, Seizure, Shortness of Breath Generalized Pain Score (Numeric/FACES): 5 - Related Data Allergies Allergy/AdvReac Type Severity Reaction Status Date / Time cefaclor [From Ceclor] Allergy Hives Verified 04/30/20 16:05 cefuroxime [From Ceftin] Allergy Diarrhea Verified 04/30/20 16:05 cephalexin monohydrate Allergy Chest Pain Verified 04/30/20 16:05 [From Keflex] doxycycline Allergy Nausea Verified 04/30/20 16:05 hydrocodone Allergy Nausea and Verified 04/30/20 16:05 Vomiting levofloxacin [From Levaquin] Allergy Leg Cramps Verified 04/30/20 16:05 moxifloxacin HCl Allergy Vomiting Verified 04/30/20 16:05 [From Avelox] oxycodone HCl Allergy Nausea and Verified 04/30/20 16:05 [From OxyContin] Vomiting Penicillins Allergy Hives Verified 04/30/20 16:05 Sulfa (Sulfonamide Allergy Fluid Verified 04/30/20 16:05 Antibiotics) Retention Home Meds: Home Meds Bumetanide [Bumex] 1 mg PO DAILY 09/10/13 [History] Calcium Carbonate/Vitamin D3 [Calcium 500-Vit D3 125 Caplet] 1 each PO DAILY 09/10/13 [History] Levothyroxine Sodium 25 mcg PO DAILY 09/10/13 [History] Pantoprazole Sodium 40 mg PO DAILY 09/10/13 [History] Potassium Chloride 10 meq PO DAILY 09/10/13 [History] Venlafaxine HCl [Venlafaxine ER] 75 mg PO DAILY 09/10/13 [History] Cetirizine HCl/Pseudoephedrine [ZyrTEC-D] 5 mg PO DAILY PRN 02/14/15 [History] Ibuprofen 600 mg PO Q4H PRN 03/11/17 [History] traMADol HCl [Tramadol HCl] 50 mg PO BID PRN 03/11/17 [History] Losartan Potassium 25 mg PO DAILY 04/23/20 [History] Multivitamin 1 tab PO DAILY 04/23/20 [History] carvediloL [Carvedilol] 6.25 mg PO BID 04/23/20 [History] carvediloL [Carvedilol] 12.5 mg PO BID 04/23/20 [History] Cholecalciferol (Vitamin D3) [Vitamin D] 5,000 unit PO DAILY 04/30/20 [History] Past Medical History HEENT History: Reports: None Cardiovascular History: Reports: Cardiomyopathy Respiratory History: Reports: Bronchitis, Recurrent Gastrointestinal History: Reports: GERD Genitourinary History: Reports: Pyelonephritis, Renal Calculus [employer] History: Reports: Fibroids, Musculoskeletal History: Reports: Arthritis Neurological History: Reports: Migraines, Vertigo Endocrine/Metabolic History: Reports: Hypoparathyroidism - Past Surgical History HEENT Surgical History: Reports: Oral Surgery Respiratory Surgical History: Reports: None GI Surgical History: Reports: Colonoscopy Female Surgical History: Reports: Hysterectomy, Tubal Ligation Endocrine Surgical History: Reports: None Neurological Surgical History: Reports: Discectomy Social & Family History - Family History Family Medical History: No Pertinent Family History Cardiac: Reports: Hypertension - Tobacco Use Tobacco Use Status *Q: Never Tobacco User Second Hand Smoke Exposure: No - Caffeine Use Caffeine Use: Reports: Coffee, Soda - Living Situation & Occupation Living situation: Reports: , with Family ED ROS GENERAL - Review of Systems Review Of Systems: Comprehensive ROS is negative, except as noted in HPI. ED EXAM, GENERAL - Physical Exam Exam: See Below Exam Limited By: No Limitations General Appearance: Alert, WD/WN, No Apparent Distress Eye Exam: Bilateral Eye: EOMI, PERRL Ears: Normal External Exam, Normal Canal, Hearing Grossly Normal, Normal TMs Nose: Normal Inspection, Normal Mucosa, No Blood Throat/Mouth: Normal Inspection, Normal Lips, Normal Teeth, Normal Gums, Normal Oropharynx, Normal Voice, No Airway Compromise Head: Atraumatic, Normocephalic Neck: Normal Inspection, Supple, Non-Tender, Full Range of Motion Respiratory/Chest: No Respiratory Distress, Lungs Clear, Normal Breath Sounds, No Accessory Muscle Use, Chest Non-Tender Cardiovascular: Normal Peripheral Pulses, Regular Rate, Rhythm, No Edema, No Gallop, No JVD, No Murmur, No Rub GI/Abdominal: Normal Bowel Sounds, Soft, Non-Tender, No Organomegaly, No Distention, No Abnormal Bruit, No Mass Back Exam: Normal Inspection, Full Range of Motion, NT Extremities: Normal Inspection, Normal Range of Motion, Non-Tender, Normal Capillary Refill, No Pedal Edema Neurological: Alert, Oriented, CN II-XII Intact, Normal Cognition, Normal Re flexes, No Motor/Sensory Deficits Psychiatric: Normal Affect, Normal Mood Skin Exam: Warm, Dry, Intact, Normal Color, No Rash Lymphatic: No Adenopathy Course - Vital Signs Last Recorded V/S: Last Vital Signs Temp 98.3 F 04/30/20 16:21 Pulse 78 04/30/20 16:21 Resp 18 04/30/20 16:21 BP 101/66 04/30/20 16:21 Pulse Ox 94 L 04/30/20 16:21 - Orders/Labs/Meds Labs: Laboratory Tests 04/30/20 04/30/20 Range/Units 16:23 16:23 WBC 9.6 (5.0-10.0) 10^3/uL RBC 4.44 (4.00-5.50) 10^6/uL Hgb 13.4 (12.0-16.0) g/dL Hct 40.3 (37.0-47.0) % MCV 90.8 (82.0-94.0) fL MCH 30.2 (27.0-32.0) pg MCHC 33.3 (33.0-38.0) g/dL RDW Coeff of Ember 13.9 (11.0-15.0) % Plt Count 244 (150-400) 10^3/uL Neut % (Auto) 82.4 (35-85) % Lymph % (Auto) 10.1 (10-55) % Beaver % (Auto) 7.4 (0-16) % Eos % (Auto) 0 (0-5) % Baso % (Auto) 0.1 (0-3) % Neut # (Auto) 7.92 H (1.80-7.00) 10^3/uL Lymph # (Auto) 0.97 L (1.00-4.80) 10^3/uL Beaver # (Auto) 0.71 (0.00-0.80) 10^3/uL Eos # (Auto) 0.00 (0.00-0.45) 10^3/uL Baso # (Auto) 0.01 10^3/uL Sodium 132 L (136-145) mEq/L Potassium 3.5 (3.5-5.0) mEq/L Chloride 93 L (98-106) mEq/L Carbon Dioxide 31 (21-32) mmol/L BUN 21 H D (7-18) mg/dL Creatinine 1.3 H (0.6-1.0) mg/dL Est Cr Clr Drug Dosing 34.12 mL/min Estimated GFR (MDRD) 41 L (>=60) mL/min Glucose 149 H D (75-99) mg/dL Calcium 8.2 L (8.4-10.1) mg/dL Total Bilirubin 0.6 (0.0-1.0) mg/dL AST 24 (15-37) U/L ALT 22 (12-78) U/L Alkaline Phosphatase 86 (46-116) U/L Troponin I < 0.017 (0.00-0.06) ng/mL C-Reactive Protein 3.2 H (0.2-0.8) mg/dL Total Protein 7.2 (6.4-8.2) g/dL Albumin 3.0 L (3.4-5.0) g/dL Meds: Medications Discontinued Medications Generic Name Dose Route Start Last Admin Trade Name Freq PRN Reason Stop Dose Admin Sodium Chloride 500 mls @ 500 mls/hr 04/30/20 16:30 04/30/20 16:30 Normal Saline IV 500 mls/hr .BOLUS HUEY Administration Sodium Chloride Confirm 04/30/20 16:08 04/30/20 18:42 Normal Saline Administered 04/30/20 16:09 Not Given Dose 1,000 mls @ as directed .ROUTE .STK-MED ONE Departure - Departure Time of Disposition: 17:08 Disposition: Home, Self-Care 01 Condition: Fair Clinical Impression: COVID-19 Episode of syncope Qualifiers: Syncope type: vasovagal syncope Qualified Code(s): R55 - Syncope and collapse - Discharge Information *PRESCRIPTION DRUG MONITORING PROGRAM REVIEWED*: Not Applicable *COPY OF PRESCRIPTION DRUG MONITORING REPORT IN PATIENT ANTONIA: Not Applicable Instructions: COVID-19 Frequently Asked Questions Referrals: PCP,Unobtain [Ordering Only Provider] - Forms: ED Department Discharge Additional Instructions: - Continue to rest and push fluids - Continue Vitamin C, Vitamin D, and Zinc - Slow cautious movements - Follow up for any worsening of symptoms - Return to ED for any worsening shortness of breath or difficulty breathing Sepsis Event Note (ED) - Evaluation Sepsis Screening Result: No Definite Risk - Problem List & Annotations (1) COVID-19 SNOMED Code(s): 307198444 Code(s): U07.1 - COVID-19 Status: Acute (2) Episode of syncope SNOMED Code(s): 356120466 Code(s): R55 - SYNCOPE AND COLLAPSE Status: Acute Qualifiers: Syncope type: vasovagal syncope Qualified Code(s): R55 - Syncope and collapse - Problem List Review Problem List Initiated/Reviewed/Updated: Yes - Assessment/Plan Assessment:: Covid-19 Episode of Syncope Plan: As above.
[2020-04-30 16:57] LABS: CHLORIDE,CL 93 mEq/L (98-106); SODIUM,NA 132 mEq/L (136-145)
== END 2020-04-30 17:35 | disposition home or self-care (01) ==
LOC: CC.ED 15:50
DX: R55 Syncope and collapse (principal); U07.1 COVID-19; K21.9 Gastro-esophageal reflux disease without esophagitis; E20.9 Hypoparathyroidism, unspecified; Z88.8 Allergy status to other drugs, medicaments and biological substances; Z88.1 Allergy status to other antibiotic agents; Z88.5 Allergy status to narcotic agent; Z88.0 Allergy status to penicillin; Z88.2 Allergy status to sulfonamides; Z79.899 Other long term (current) drug therapy
CPT/HCPCS: 36415; 80053; 84484; 85025; 86140; 93005; 93010; 99284; 99284-25; J7040

== ENCOUNTER 2022-04-22 21:22 | Emergency (ER) | payer MEDICARE, OTHER ==
[2022-04-22 21:38] VITALS: BP 119/84; PULSE 115
[2022-04-22] MEDS ORDERED: Oxymetazoline 0.05% Nasal Spray 30 ML Bottle NAS ONE (21:39)
== END 2022-04-22 22:05 | disposition home or self-care (01) ==
LOC: CC.ED 21:22
DX: R04.0 Epistaxis (principal); K21.9 Gastro-esophageal reflux disease without esophagitis; M19.90 Unspecified osteoarthritis, unspecified site; E20.9 Hypoparathyroidism, unspecified; Z88.1 Allergy status to other antibiotic agents; Z88.5 Allergy status to narcotic agent; Z88.0 Allergy status to penicillin; Z88.2 Allergy status to sulfonamides; Z79.899 Other long term (current) drug therapy
CPT/HCPCS: 30901; 99283; 99284; A9270-GY

== ENCOUNTER 2022-12-09 06:33 | Emergency (ER) | payer MEDICARE, OTHER ==
[2022-12-09 07:11] VITALS: BP 119/67; PULSE 93
== END 2022-12-09 07:25 | disposition home or self-care (01) ==
LOC: CC.ED 06:33
DX: H65.02 Acute serous otitis media, left ear (principal); K21.9 Gastro-esophageal reflux disease without esophagitis; E05.90 Thyrotoxicosis, unspecified without thyrotoxic crisis or storm; Z88.1 Allergy status to other antibiotic agents; Z88.5 Allergy status to narcotic agent; Z88.2 Allergy status to sulfonamides; Z79.899 Other long term (current) drug therapy
CPT/HCPCS: 99282; 99283